=== PATIENT | female | born 1980 | race Caucasian/White ===

== ENCOUNTER → 2023-09-06 03:15 | Outpatient (CLI) | payer BC, SELFPAY ==
--- NOTE | 2023-09-06 13:30 | DI.MAMMO_ITS ---
Exam(s) US BREAST RT LIMITED [facility]MO DIAGNOSTIC BI EXAM: MG MAMMO DIAGNOSTIC BI CLINICAL HISTORY: LUMP IN BREAST N63.0. COMPARISON: US US BREAST RT LIMITED from 09/06/2023 TECHNIQUE: Craniocaudal and mediolateral oblique Full Field Digital Mammography views of both breast s with Computer Aided Diagnosis followed by Tomosynthesis and right breast ultrasound. FINDINGS: Mammography/Tomosynthesis: Masses/Architectural Distortion: None seen. Microcalcifications: No suspicious pleomorphic-type are seen. Skin Thickening/Nipple Retraction: None. Right breast US: Echotexture: Normal appearance of the glandular tissue. Shadowing: No suspicious foci. Cyst: None. Solid lesions: Circumscribed hypoechoic lesion measuring 6 x 3 x 6 millimeters 10 o'clock position 4 cm from the nipple. This appears more proximal than where the patient is palpated an abnormality. F indings may represent a small fibroadenoma versus intramammary lymph node. Ductal dilation: None. IMPRESSION: 1. No evidence of malignancy is noted. 2. Unless there is more urgent need, follow-up screening mammography is recommended, as per [employer] guidelines. BI-RADS Category 2 - Benign Findings Breast Density - Category B - Scattered areas of fibroglandular density Breast density category C or D implies that the patient has dense breast tissue. Dense breast tissue is very common and is not abnormal but dense breast tissue can make it harder to find cancer on a ma mmogram. Also, dense breast tissue may increase their breast cancer risk. This information about the result of the mammogram report was provided to the patient to raise their awareness. Use this report when you speak with the patient about their risks for breast cancer, which includes their family hist ory. At that time, you may recommend for more screening tests (Ultrasound or MRI) as they might be us eful based on their risk. A negative radiographic report should not delay biopsy if a dominant or clinically suspicious mass is present. Up to ten percent of cancers are not identified on mammography. A negative report may reinforce clinical impression. Adenosis and dense breasts may obscure an underlying neoplasm. False positive reports average 6 to 10%. Patient will receive a letter notifying them of these results.
== END ==
PROVIDERS: Visit Provider Nurse Practitioner Family
DX: N63.11 Unspecified lump in the right breast, upper outer quadrant (principal)
CPT/HCPCS: 76642; 77062; 77066; G0279

== ENCOUNTER 2023-10-30 13:14 | Outpatient (REF) | payer BC, SELFPAY ==
--- NOTE | 2023-10-30 12:00 | PAPFT_PTH ---
PATIENT: Lucero Garcia LOC: [facility]#:[id number] AGE/SX: 43/F ROOM: RE10/30/[address]: Tony Norris : 1980 BED: DIS: 10/30/2023 SPEC #: [id number] RECD: 10/30/23 17:34 STATUS: JOSE MARTIN REQ #: [id number] ABBY: 10/30/23 12:[address]: Tony Norris DEPT: [facility] Cytology RECD BY: Callie Yoo ENTERED: 10/30/23 17:34 SP TYPE: PAPFT OTHR DR: Miriam Andres Tissues: 1 - CX/ENDOCX FOR PAP SMEARS Procedures: PAP THIN PREP/[facility] Screening HPV DNA PROBE Comments: [id number]
== END 2023-10-30 13:15 | disposition home or self-care (01) ==
LOC: NCHCN 13:14
PROVIDERS: PCP Nurse Practitioner Family; Visit Provider Physician Assistant Medical
DX: Z11.51 Encounter for screening for human papillomavirus (HPV) (principal); Z01.419 Encounter for gynecological examination (general) (routine) without abnormal findings
CPT/HCPCS: 88142; 87624